=== PATIENT | male | born 1980 | race Caucasian/White ===

== ENCOUNTER 2018-08-08 19:10 | Emergency (ER) | payer OTHER ==
[2018-08-08] MEDS ORDERED: Lidocaine 1% 10 ML MDV INJECT ONE (19:57)
[2018-08-08] MEDS ORDERED: Diphtheria,Pertussis(Acell),Tetanus Vaccine 0.5 ML Syringe IM ONE (19:59)
--- NOTE | 2018-08-08 20:03 | EDM.PDOC ---
ED HPI GENERAL MEDICAL PROBLEM - General Chief Complaint: Laceration Stated Complaint: INJURED LIP Time Seen by Provider: 08/08/18 19:39 Source of Information: Reports: Patient, RN Notes Reviewed History Limitations: Reports: No Limitations - History of Present Illness INITIAL COMMENTS - FREE TEXT/NARRATIVE: Patient is a 38 year old male who presents to the ED for the evaluation of a lip laceration. This happened at around 7pm. He said that he and his son were playing hockey and that his son tripped and the hockey stick hit him in the upper lip. He ortiz not have any broken teeth. This is around 0.5 cm in length. He is unsure whether his last tetanus booster was in 2008 or 2015. Face Pain Score (Numeric/FACES): 3 - Related Data Allergies Allergy/AdvReac Type Severity Reaction Status Date / Time morphine AdvReac Vomiting Verified 08/08/18 19:41 Home Meds: Home Meds Aspirin 81 mg PO DAILY 08/08/18 [History] Past Medical History Other Musculoskeletal History: fx clavicle - Past Surgical History Cardiovascular Surgical History: Reports: Other (See Below) Other Cardiovascular Surgeries/Procedures: open heart surgery. Musculoskeletal Surgical History: Reports: Other (See Below) Other Musculoskeletal Surgeries/Procedures:: left hand Social & Family History - Tobacco Use Smoking Status *Q: Never Smoker - Caffeine Use Caffeine Use: Reports: Coffee - Recreational Drug Use Recreational Drug Use: No ED ROS GENERAL - Review of Systems Review Of Systems: See Below Constitutional: Reports: No Symptoms HEENT: Denies: Dental Pain Respiratory: Reports: No Symptoms Cardiovascular: Reports: No Symptoms Endocrine: Reports: No Symptoms GI/Abdominal: Reports: No Symptoms : Reports: No Symptoms Musculoskeletal: Reports: No Symptoms Skin: Reports: Wound (0.5cm linear laceration to left aspect of upper lip) Neurological: Reports: No Symptoms Psychiatric: Reports: No Symptoms Hematologic/Lymphatic: Reports: No Symptoms Immunologic: Reports: No Symptoms ED EXAM, SKIN/RASH Exam: See Below Exam Limited By: No Limitations General Appearance: Alert, WD/WN, No Apparent Distress Eye Exam: Bilateral Eye: Normal Inspection Ears: Normal External Exam Nose: Normal Inspection Throat/Mouth: Normal Inspection, Normal Teeth, Normal Gums, Normal Oropharynx, No Airway Compromise, Other (0.5cm linear laceration to left aspect of upper lip ) Head: Atraumatic, Normocephalic Neck: Normal Inspection, Supple, Non-Tender, Full Range of Motion Respiratory/Chest: No Respiratory Distress, Lungs Clear, Normal Breath Sounds, No Accessory Muscle Use, Chest Non-Tender Cardiovascular: Normal Peripheral Pulses, Regular Rate, Rhythm, No Murmur Neurological: Alert, Oriented, Normal Cognition, No Motor/Sensory Deficits Psychiatric: Normal Affect, Normal Mood Skin: Warm, Dry, Normal Color, No Rash, Wound/Incision (0.5cm linear laceration to left aspect of upper lip, mild swelling noted around laceration) Location, Skin: Face Associated features: Swelling ED SKIN PROCEDURES - Laceration/Wound Repair Left Upper Other Lac/Wound length In cm: 0.5 Appearance: Superficial, Linear, Clean Distal NVT: Neuro & Vascular Intact Anesthetic Type: Local Local Anesthesia - Lidocaine (Xylocaine): 1% Plain Local Anesthetic Volume: 5cc Skin Prep: Isopropyl Alcohol (Alcohol) Saline Irrigation (cc's): 250 (copious) Exploration/Debridement/Repair: Wound Explored, In a Bloodless Field, Explored to Base, No Foreign Material Found Closed with: Sutures Suture Size: 4-0 # of Sutures: 2 Suture Type: Prolene, Interrupted, Simple Course - Vital Signs Last Recorded V/S: Last Vital Signs Temp 98.2 F 08/08/18 19:37 Pulse 50 L 08/08/18 19:37 Resp 18 08/08/18 19:37 BP 122/77 08/08/18 19:37 Pulse Ox 100 08/08/18 19:37 - Orders/Labs/Meds Orders: Active Orders 24 hr Category Date Time Status Vaccines to be Administered [RC] PER UNIT ROUTINE Care 08/08/18 19:59 Ordered Meds: Medications Discontinued Medications Generic Name Dose Route Start Last Admin Trade Name Freq PRN Reason Stop Dose Admin Diphtheria/Tetanus/Acell Pertussis 0.5 ml 08/08/18 19:59 Adacel IM 08/08/18 20:00 .ONCE ONE Lidocaine HCl 10 ml 08/08/18 19:57 Xylocaine 1% INJECT 08/08/18 19:58 ONETIME ONE - Re-Assessments/Exams Free Text/Narrative Re-Assessment/Exam: 08/08/18 20:07 Pt presents to ED for the evaluation of a left upper lip laceration. We will update his tetanus status today, and repair his lip with sutures. Departure - Departure Time of Disposition: 20:35 Disposition: Home, Self-Care 01 Condition: Fair Clinical Impression: Laceration of lip Qualifiers: Encounter type: initial encounter Qualified Code(s): S01.511A - Laceration without foreign body of lip, initial encounter - Discharge Information *PRESCRIPTION DRUG MONITORING PROGRAM REVIEWED*: No *COPY OF PRESCRIPTION DRUG MONITORING REPORT IN PATIENT SHIMA: No Instructions: Laceration Care, Adult, [id number], Stitches, [place], or Adhesive Wound Closure, [id number] Referrals: Len Combs Jr, MD [Primary Care Provider] - Forms: ED Department Discharge Additional Instructions: You have been evaluated in the ED for your lip laceration. This has been repaired with 2 sutures. Please keep these in place for at least 5 days. You may return to ED or clinic for removal. Please try to keep the area clean and dry. You will like have some swelling/ bruising to the area in the next day or two. Please return to ED if your symptoms change or worsen. - My Orders Last 24 Hours: My Active Orders 08/08/18 19:59 Vaccines to be Administered [RC] PER UNIT ROUTINE - Assessment/Plan Last 24 Hours: My Active Orders 08/08/18 19:59 Vaccines to be Administered [RC] PER UNIT ROUTINE
== END 2018-08-08 20:53 | disposition home or self-care (01) ==
LOC: JD.ED 19:10
DX: S01.511A Laceration without foreign body of lip, initial encounter (principal); Z23 Encounter for immunization; Z88.5 Allergy status to narcotic agent; Z79.82 Long term (current) use of aspirin; W21.19XA Struck by other bat, racquet or club, initial encounter; Y93.22 Activity, ice hockey
CPT/HCPCS: 12011; 90471; 90700; 99283-25

== ENCOUNTER 2022-05-22 12:00 | Emergency (ER) | payer OTHER ==
[2022-05-22] MEDS ORDERED: Lidocaine 1% 10 ML MDV INJECT ONE (12:54)
[2022-05-22] MEDS ORDERED: Lidocaine 1% 10 ML MDV ONE (13:15)
== END 2022-05-22 14:45 | disposition home or self-care (01) ==
LOC: JD.ED 12:00
DX: S61.213A Laceration without foreign body of left middle finger without damage to nail, initial encounter (principal); Z79.82 Long term (current) use of aspirin; Z79.899 Other long term (current) drug therapy; Z88.6 Allergy status to analgesic agent; W26.0XXA Contact with knife, initial encounter
CPT/HCPCS: 12002; 99282